=== PATIENT | female | born 1970 | race Caucasian/White ===

== ENCOUNTER 2016-10-29 16:02 | Emergency (ER) | payer BC, OTHER ==
[~2016-10-29] VITALS: Ht 175.3 cm; Wt 122.5 kg
[~2016-10-29 16:02] MED LIST: ALL180 PO; BSP15 PO; ESCI1TAB10 PO; FLNIN NAE
[2016-10-29 16:05] VITALS: TEMP 37.2; Ht 175.3 cm; Wt 122.5 kg
[2016-10-29] MEDS ORDERED: FLUT0.15 NAE (16:19)
[2016-10-29] MEDS ORDERED: ASTN NAE (16:23)
[2016-10-29] MEDS ORDERED: PSEU60TA80 PO (16:27)
[2016-10-29 16:58] LABS: BASO % 0.4 %; BASO ABS # 0.03 K/uL (0-0.2); COMPLETE YES; EOS % 2.6 %; HEMATOCRIT 35.3 % (37-47); IG% 0.2 %; LYMPH % 28.9 %; LYMPH ABS # 2.45 K/uL (1.2-3.4); MEAN CELL VOLUME 83.5 fL (80-100); MEAN CORPUSCULAR HEMOGLOBIN 27.7 pg (25-34); MEAN CORPUSCULAR HGB CONC 33.1 g/dl (32-36); MONO % 9.3 %; NEUT % 58.6 %; PLATELET COUNT 258 K/uL (130-400); RED BLOOD COUNT 4.23 M/uL (4.2-5.4); WHITE BLOOD COUNT 8.48 K/uL (4.8-10.8)
[2016-10-29 17:05] LABS: PARTIAL THROMBOPLASTIN RATIO 1.1; PROTHROMBIN TIME (PATIENT) 10.6 SECONDS (9.0-12.0)
[2016-10-29 17:24] LABS: BUN/CREATININE RATIO 10.4 (10-20); CALCIUM 8.7 mg/dl (8.5-10.1); CREATININE 0.91 mg/dl (0.60-1.20); POTASSIUM 3.9 mmol/L (3.5-5.1)
[2016-10-29 17:27] LABS: ALB/GLOB RATIO 1.2 (0.9-2)
--- NOTE | 2016-10-29 17:36 | DIAGNOSTIC IMAGING REPORT ---
LEFT TIBIA/FIBULA 2 VIEWS ROUTINE CLINICAL HISTORY: Left lower leg pain status post trauma COMPARISON: None. DISCUSSION: No acute fractures are visualized. There is mild soft tissue edema. Superficial varicosities are visualized. There is calcaneal spurring. IMPRESSION: No acute fractures or dislocations identified. Electronically signed by: Augustin Dixon M.D. 10/29/2016 5:35 PM Dictated Date/Time: 10/29/2016 5:34 PM
--- NOTE | 2016-10-29 17:44 | DIAGNOSTIC IMAGING REPORT ---
ULTRASOUND LEFT VENOUS DOPP LOWER EXT UNILAT CLINICAL HISTORY: Left leg edema and ecchymosis s/p trauma COMPARISON STUDY: No previous studies for comparison. FINDINGS: Real-time and color flow Doppler imaging were performed. Flow was seen within the femoral, popliteal and calf veins with no intraluminal thrombus demonstrated. The saphenous vein is patent. IMPRESSION: No evidence of left lower extremity DVT. Electronically signed by: Augustin Dixon M.D. 10/29/2016 5:43 PM Dictated Date/Time: 10/29/2016 5:42 PM
--- NOTE | 2016-10-29 18:17 | EMERGENCY ROOM VISIT NOTE ---
ED Visit Note First contact with patient: 16:18 This Patient was discussed with the physician social work assistant, Johnathan Delgado PA-C. The pertinent historical and physical exam findings were confirmed. I agree with the studies ordered and with the interpretations of these studies. I agree with the disposition and care plan.
--- NOTE | 2016-10-29 18:19 | EMERGENCY ROOM VISIT NOTE ---
History First contact with patient: 16:18 Chief Complaint: LEG PAIN,LEG INJURY Stated Complaint: HEMOTOMA-R CALF TIGHT,WARM,SWELLING History of Present Illness The patient is a 46 year old female who presents to the Emergency Room via private vehicle with complaints of "hematoma, right calf tight, warm, swelling" . The patient states that a few days ago, specifically on Thursday morning, she had the reins of the horse wrapped around her arm in the horse became startled and jumped forward, causing her to fall the ground and strike her left leg on the ground. She notes pain at that time, and since then has developed a large hematoma/bruise on the left inferior leg region. She denies any numbness or tinging, but does note her leg feels tight. She is taking Tylenol with some relief. She rates the pain is a 67/10. She denies any anticoagulant use. Review of Systems A complete 6-point Review of Systems was discussed with the patient, with pertinent positives and negatives listed in the History of Present Illness. All remaining Review of Systems questions can be considered negative unless otherwise specified. Past Medical/Surgical History No pertinent Family History No pertinent Social History Smoking Status: Never Smoker Social History: Patient lives locally. She has horses. Current/Historical Medications Scheduled Azelastine Hcl (Astelin Nasal Bladen), 1 SPRAY SHANIA BID Fluticasone Propionate (Nasal) (Flonase Allergy Relief), 1 SPRAY SHANIA BID Pseudoephedrine-Guaifenesin (Mucinex D), 1 TAB PO DAILY Allergies Coded Allergies: Macrolides (Unverified Allergy, Mild, 10/29/16) Uncoded Allergies: SULFA EYE DROPS (Adverse Reaction, Severe, SWELLING, 10/29/16) ITCHING Physical Exam Vital Signs Date Time Temp Pulse Resp B/P (MAP) Pulse Ox O2 Delivery O2 Flow Rate FiO2 10/29/16 18:30 80 18 146/87 96 10/29/16 18:02 80 18 146/87 96 Room Air 10/29/16 16:05 37.2 96 16 156/101 97 Room Air Physical Exam VITAL SIGNS - Vital signs and nursing notes were reviewed. Patient is afebrile , hypertensive at 156/101, non-tachycardic and saturating well on room air at 97 %. GENERAL -46-year-old female appearing her stated age who is in no acute distress. Communicates well with provider and answers questions appropriately. SKIN - Without rashes. There is a large hematoma and edema formation overlying the calf and funes region of the patient's left leg. EXTREMITIES - No clubbing or peripheral cyanosis. No pretibial edema present. The measured circumference of the largest portion of the patient's left anterior funes is 52 cm. The right is 49.57 cm. The left leg is tense, without evidence of compartment syndrome. She is neurovascularly intact in this region. +5/5 strength noted in UE/LE bilaterally. Medical Decision & Procedures ER Provider Diagnostic Interpretation: ULTRASOUND LEFT VENOUS DOPP LOWER EXT UNILAT CLINICAL HISTORY: Left leg edema and ecchymosis s/p trauma COMPARISON STUDY: No previous studies for comparison. FINDINGS: Real-time and color flow Doppler imaging were performed. Flow was seen within the femoral, popliteal and calf veins with no intraluminal thrombus demonstrated. The saphenous vein is patent. IMPRESSION: No evidence of left lower extremity DVT. Electronically signed by: Augustin Dixon M.D. 10/29/2016 5:43 PM Dictated Date/Time: 10/29/2016 5:42 PM LEFT TIBIA/FIBULA 2 VIEWS ROUTINE CLINICAL HISTORY: Left lower leg pain status post trauma COMPARISON: None. DISCUSSION: No acute fractures are visualized. There is mild soft tissue edema. Superficial varicosities are visualized. There is calcaneal spurring. IMPRESSION: No acute fractures or dislocations identified. Electronically signed by: Augustin Dixon M.D. 10/29/2016 5:35 PM Dictated Date/Time: 10/29/2016 5:34 PM Laboratory Results 10/29/16 16:45 Red Blood Count 4.23, Mean Corpuscular Volume 83.5, Mean Corpuscular Hemoglobin 27.7, Mean Corpuscular Hemoglobin Concent 33.1, Mean Platelet Volume 10.0, Neutrophils (%) (Auto) 58.6, Lymphocytes (%) (Auto) 28.9, Monocytes (%) (Auto) 9.3, Eosinophils (%) (Auto) 2.6, Basophils (%) (Auto) 0.4, Neutrophils # (Auto) 4.97, Lymphocytes # (Auto) 2.45, Monocytes # (Auto) 0.79, Eosinophils # (Auto) 0.22, Basophils # (Auto) 0.03 10/29/16 16:45 Test 10/29/16 16:45 White Blood Count 8.48 K/uL (4.8-10.8) Red Blood Count 4.23 M/uL (4.2-5.4) Hemoglobin 11.7 g/dL (12.0-16.0) Hematocrit 35.3 % (37-47) Mean Corpuscular Volume 83.5 fL (80-100) Mean Corpuscular Hemoglobin 27.7 pg (25-34) Mean Corpuscular Hemoglobin Concent 33.1 g/dl (32-36) Platelet Count 258 K/uL (130-400) Mean Platelet Volume 10.0 fL (7.4-10.4) Neutrophils (%) (Auto) 58.6 % Lymphocytes (%) (Auto) 28.9 % Monocytes (%) (Auto) 9.3 % Eosinophils (%) (Auto) 2.6 % Basophils (%) (Auto) 0.4 % Neutrophils # (Auto) 4.97 K/uL (1.4-6.5) Lymphocytes # (Auto) 2.45 K/uL (1.2-3.4) Monocytes # (Auto) 0.79 K/uL (0.11-0.59) Eosinophils # (Auto) 0.22 K/uL (0-0.5) Basophils # (Auto) 0.03 K/uL (0-0.2) RDW Standard Deviation 41.2 fL (36.4-46.3) RDW Coefficient of Variation 13.5 % (11.5-14.5) Immature Granulocyte % (Auto) 0.2 % Immature Granulocyte # (Auto) 0.02 K/uL (0.00-0.02) Prothrombin Time 10.6 SECONDS (9.0-12.0) Prothromb Time International Ratio 1.0 (0.9-1.1) Activated Partial Thromboplast Time 28.2 SECONDS (21.0-31.0) Partial Thromboplastin Ratio 1.1 Anion Gap 7.0 mmol/L (3-11) Est Creatinine Clear Calc Drug Dose 107.1 ml/min Estimated GFR () 87.1 Estimated GFR (Non- 75.1 BUN/Creatinine Ratio 10.4 (10-20) Calcium Level 8.7 mg/dl (8.5-10.1) Total Bilirubin 0.4 mg/dl (0.2-1) Aspartate Amino Transf (AST/SGOT) 16 U/L (15-37) Alanine Aminotransferase (ALT/SGPT) 22 U/L (12-78) Alkaline Phosphatase 80 U/L (45-117) Total Protein 7.4 gm/dl (6.4-8.2) Albumin 4.1 gm/dl (3.4-5.0) Globulin 3.3 gm/dl (2.5-4.0) Albumin/Globulin Ratio 1.2 (0.9-2) Medical Decision Patient was seen and evaluated as above. After a thorough history and physical examination IV access was initiated, and the above workup was performed. Patient presents to us today with a large amount of edema and ecchymosis of the left calf secondary to trauma. It appears that this is likely hematoma formation, however I would like to rule out DVT, as well as blood dyscrasia. I do not suspect compartment syndrome upon examination. Ultrasound and radiograph results as above. No acute fracture, dislocation or DVT. Blood work is unremarkable for acute process. Hemoglobin is 11.7. Coags normal. Her CMP is unremarkable. My attending also evaluate the patient. Measurements of the calf or obtained and the patient was informed she is to follow-up with her family doctor for re-measurement in 48 hours. She was to return here with worsening. She was educated upon worrisome symptoms which to return, specifically that of compartment syndrome. She had questions or discharge, and was discharged home in good condition. In evaluation treatment this patient following differential diagnoses were dictated: DVT, compartment syndrome, fracture, among others. Impression Primary Impression: Leg pain, left Additional Impression: Anemia Departure Information Dispostion Home / Self-Care Condition GOOD Referrals Loc Friedman III, M.D. (PCP) Patient Instructions ED Compartment Syndrome At Risk For, My [facility] Additional Instructions You have been treated in the Emergency Department for left leg pain. For pain control, you can use the following [id number] medicines): - Regular strength (325mg/tab) Tylenol (acetaminophen) 2 tabs every 4-6 hours as needed. Do not exceed 12 tablets in a 24 hour period. Avoid taking more than 3 grams (3000 mg) of Tylenol per day. This includes any other sources of acetaminophen you may take on a regular basis. - Regular strength (200 mg/tab) Advil (ibuprofen) 1-2 tabs every 4-6 hours as needed. Do not exceed a dose of 3200 mg per day. If this is a recent injury (<24 hrs), ice can be applied to the area of pain for the first 3 days to help decrease pain and inflammation. Ice massages can be performed by freezing water in a paper cup, peeling back the cup to expose the ice and then massaging over the affected area. Please call your family doctor to schedule follow-up and reevaluation in 48 hours. The circumference of your left leg was found to be 52 cm, and the right leg was found to be 49.5 cm. If they find her leg to be significantly increased in circumference please return immediately. If your leg would become more painful, or you cannot failure foot please return. Please elevate, and ice the leg as you're able. Please do not apply ice to rectal he to the leg itself. Please use a barrier such as a washcloth or bag. Return to the Emergency Department if your current symptoms worsen despite treatment course outlined above. Please follow-up with your family doctor for your elevated blood pressure today. Please return to the emergency department with any new/concerning symptoms. Problem Qualifiers
[2016-10-29 18:30] VITALS: BP 146/87; PULSE 80; O2SAT 96
== END 2016-10-29 18:30 | disposition home or self-care (01) ==
LOC: C.EDB 16:04 → C.EDD 18:30
DX: S80.12XA Contusion of left lower leg, initial encounter (principal); W18.00XA Striking against unspecified object with subsequent fall, initial encounter; D64.9 Anemia, unspecified